=== PATIENT | male | born 1945 | race African-American/Black ===

== ENCOUNTER 2016-03-24 06:34 | Outpatient (CLI) ==
[2016-03-24 09:26] LABS: BASOPHILS # (AUTO) 0.1 K/uL (0-0.2); BASOPHILS % (AUTO) 0.5 % (0.0-3.0); EOSINOPHILS # (AUTO) 0.3 K/ul (0.0-0.7); EOSINOPHILS % (AUTO) 2.7 % (0.0-7.0); HEMATOCRIT 40.7 % (42.0-52.0); HEMOGLOBIN 13.4 g/dl (14.0-18.0); IMMATURE GRANULOCYTE % (AUTO) 0.5 % (0.0-5.0); LYMPHOCYTES # (AUTO) 2.7 K/uL (0.60-3.4); LYMPHOCYTES % (AUTO) 26.6 (10.0-50.0); MEAN CORPUSCULAR HGB CONC 32.9 (31.8-35.4); MEAN CORPUSCULAR VOLUME 91.1 fl (80.0-94.0); MONOCYTES # (AUTO) 0.9 K/uL (0.4-2.0); MONOCYTES % (AUTO) 8.5 (0-10); NEUTROPHILS # (AUTO) 6.2 K/ul (2.0-6.9); NEUTROPHILS % (AUTO) 61.2; PLATELET COUNT 323 10^3/uL (140-440); RED BLOOD COUNT 4.47 10^6/ul (4.70-6.10); WHITE BLOOD COUNT 10.17 K/ul (4.2-10.2)
[2016-03-24 09:31] LABS: BILIRUBIN,URINE Negative (NEGATIVE); KETONES,URINE Negative (NEGATIVE); LEUKOCYTE ESTERASE ,URINE Negative (NEGATIVE); NITRITE,URINE Negative (NEGATIVE); PH,URINE 5.5 (5-9); PROTEIN,URINE Negative (NEGATIVE); URINE, BLOOD Negative (NEGATIVE)
[2016-03-24 09:41] LABS: PARTIAL THROMBOPLASTIN TIME 24.1 SEC (23.9-40.0); PROTHROMBIN TIME 9.5 SEC (9.3-11.0)
[2016-03-24 09:43] LABS: ADD URINE MICROSCOPIC NO
[2016-03-24 09:48] LABS: ALBUMIN 3.8 g/dL (3.4-5.0); ALBUMIN/GLOBULIN RATIO 1.19; ANION GAP 13.6; BILIRUBIN,TOTAL 0.39 mg/dL (0.00-1.20); BUN/CREATININE RATIO 14.28; CALCIUM 9.6 mg/dL (8.2-10.2); CREATININE 0.91 mg/dL (0.60-1.10); POTASSIUM 4.6 mmol/L (3.5-5.1)
--- NOTE | 2016-03-24 10:22 | DI ---
EXAM: PA and lateral views of the chest HISTORY: Preop for prostate surgery COMPARISON: None FINDINGS: The cardiomediastinal silhouette is normal. There is no pneumothorax or pleural effusion . There is no consolidation, nodule or mass. The osseous structures demonstrate multilevel disc sp leila narrowing and anterior disc osteophytes. Mild anterior wedge deformity is noted in the inferior thoracic spine. There is no lytic or blastic lesion identified.. IMPRESSION: No acute cardiopulmonary process
--- NOTE | 2016-03-25 11:12 | ECHO2D ---
Date of Exam: 03/24/16 Ordering Physician: PAT HICKS Reason for Echo: HYPERTENSION, SOB, DYSLIPIDEMIA, SURGICAL CLEARANCE M-Mode Normal Adult Results LV Dimensions Normal Adult Results AoV Opening excursions >1.6 >1.6 LVEDD-base- 3.5-5.8 5.4 Ao root dimensions 2.0-3.7 3.3 LVESD-base- 3.1-4.6 L. Atrium dimensions 1.9-3.8 4.1 Post. Wall thickness 0.8-1.1 1.3 IV septum (thickness) 0.7-1.2 1.4 Post. Wall excursion 0.72-1.3 NORMAL Septal motion NORMAL Systolic motion R. Ventricular cavity 1.5-2.0 NORMAL LVEF 60% 50% Paradoxical septal wall motion NORMAL 2-D : MILDLY ENLARGED LEFT ATRIAL CAVITY--NORMAL LEFT VENTRICULAR CONTRACTILITY- -NORMAL VALVES--NO EFFUSION, NO THROMBUS, NORMAL LEFT VENTRICLE SIZE M-MODE: MV: NORMAL AV: NORMAL TV: NORMAL PV: CHAMBER SIZE: ENLARGED LEFT ATRIAL CAVITY WALL MOTION: NORMAL PERICARDIUM: NORMAL INTERPRETATION: 1. LEFT VENTRICULAR HYPERTROPHY WITH ENLARGED LEFT ATRIAL CAVITY 2. NORMAL LEFT VENTRICULAR CONTRACTILITY 3. NORMAL VALVES MTDD
--- NOTE | 2016-03-25 11:16 | ECHOSTRESS ---
Date of Exam: 03/24/16 Ordering Physician: PAT HICKS Reason for Echo: HYPERTENSION, SOB, DYSLIPIDEMIA, SURGICAL CLEARANCE, STRESS TEST--NO ISCHEMIA M-Mode Normal Adult Results LV Dimensions Normal Adult Results AoV Opening excursions >1.6 LVEDD-base- 3.5-5.8 Ao root dimensions 2.0-3.7 LVESD-base- 3.1-4.6 L. Atrium dimensions 1.9-3.8 Post. Wall thickness 0.8-1.1 IV septum (thickness) 0.7-1.2 Post. Wall excursion 0.72-1.3 Septal motion Systolic motion R. Ventricular cavity 1.5-2.0 LVEF 60% Paradoxical septal wall motion 2-D: NORMAL LEFT VENTRICULAR CONTRACTILITY--RESTING AND POST EXERCISE M-MODE: MV: AV: TV: PV: CHAMBER SIZE: WALL MOTION: NORMAL LEFT VENTRICULAR CONTRACTILITY--RESTING AND POST EXERCISE PERICARDIUM: INTERPRETATION: 1. NORMAL LEFT VENTRICULAR CONTRACTILITY--RESTING AND POST EXERCISE MTDD
--- NOTE | 2016-03-25 11:28 | STRESSECHO ---
Date of Test: 03/24/16 Reason for Exam: HYPERTENSION, SOB, DYSLIPIDEMIA, SURGICAL CLEARANCE Ordering Physician: PAT HICKS Current Medications: LOSARTAN, TAMSULOSIN, Physical Findings: S1, S2, NO S3 Resting EKG: SINUS RHYTHM/NO ACUTE CHANGES Target Heart Rate: 126/149 STAGE MPH/GRADE HEART RATE BPM BLOOD PRESSURE mmhg RHYTHM S-T SEGMENT +/- UP DOWN SYMPTOMS,COMMENTS At Rest 58 138/84 SR X NONE 1 1.7/10% 120 SR X NONE 2 2.5/12% 3 3.4/14% 4 4.2/16% 5 5.0/18% Immediately after 131 SR X SHORT OF BREATH Durations of Exercise: 4:01 Reason for Termination: SHORT OF BREATH 3 MIN POST EXERCISE: HR 80BPM, BP 188/80 MMHG, SINUS RHYTHM, S-T SEGMENT +/- , SHORT OF BREATH INTERPRETATION: 97% OXYGEN SATURATION WITH EXERCISE ON ROOM AIR METS 7.0 1. NO EVIDENCE OF ISCHEMIA BY ST-T WAVE CHANGES 2. NO CHEST PAIN OR CHEST DISCOMFORT 3. BLOOD PRESSURE RESPONSE: HYPERTENSION WITH EXERCISE 4. FEW PVC'S WITH EXERCISE NORMAL LEFT VENTRICULAR CONTRACTILITY--RESTING AND POST EXERCISE MTDD
== END 2016-03-24 06:35 | disposition home or self-care (01) ==
LOC: CAR 06:34
PROVIDERS: ATTEND Internal Medicine
DX: Z01.812 Encounter for preprocedural laboratory examination (principal); Z01.818 Encounter for other preprocedural examination; Z01.810 Encounter for preprocedural cardiovascular examination; C61 Malignant neoplasm of prostate; I10 Essential (primary) hypertension; R06.02 Shortness of breath; E78.5 Hyperlipidemia, unspecified
CPT/HCPCS: 36415; 80053; 80074; 81001; 85025; 85610; 85730; 87086

== ENCOUNTER 2017-03-16 10:45 | Day surgery (SDC) | payer OTHER ==
[2017-03-16] MEDS ORDERED: LIDOCAINE 1% 20 ML MDV ID STA (12:06)
[2017-03-16] MEDS ORDERED: VERSED ONE (12:30)
[2017-03-16] MEDS ORDERED: DIPRIVAN 20 ML VIAL IVP ONE (12:30)
[2017-03-16 15:29] VITALS: BP 132/71; TEMP 97.6
--- NOTE | 2017-03-17 09:58 | OP ---
PROCEDURE: COLONOSCOPY TO THE CECUM WITH SNARE POLYPECTOMY. ENDOSCOPIST: Sy BECERRIL M.D. INDICATION: HISTORY OF ADENOMATOUS POLYPS. INSTRUMENT: [id number]. MEDICATION: PER ANESTHESIA. PROCEDURE: The patient was positioned for colonoscopy. The digital rectal exam was negative. The colonoscope was inserted through the anus and advanced to the cecum. The cecum was identified using the ileocecal valve and the appendiceal orifice as landmarks. The scope was slowly withdrawn through an adequately prepped colon. Careful inspection was made of each colonic segment as the scope was withdrawn in a circumferential fashion. Care was taken to inspect the proximal side of the ileocecal valve, haustral folds, flexures and rectal valves. In the ascending colon a 7 mm polyp was removed using snare cautery. Diverticula was seen in the left colon. Hemorrhoids noted on retroflex exam. Withdrawal time 8 minutes and 38 seconds. PLAN: 1. Suggest repeat colonoscopy in 5 years. CC: DR. KURT NIÑO
== END 2017-03-16 13:45 | disposition home or self-care (01) ==
LOC: SURG 10:45
PROVIDERS: ATTEND Internal Medicine Gastroenterology
DX: Z09 Encounter for follow-up examination after completed treatment for conditions other than malignant neoplasm (principal); Z86.010 Personal history of colon polyps; D12.2 Benign neoplasm of ascending colon; K57.30 Diverticulosis of large intestine without perforation or abscess without bleeding